=== PATIENT | male | born 1945 | race Caucasian/White ===

== ENCOUNTER → 2016-08-01 | Outpatient (CLI) | payer OTHER ==
[~2016-08-01] MED LIST: ASPI-427 PO; ATOR-54 PO; DOXA8TAB2 PO; LISI-792 PO; POTA20TA16 PO
[2016-08-01 16:18] LABS: BLOOD UREA NITROGEN 16 mg/dl (7-18); BUN/CREATININE RATIO 18.4 (10-20); CREATININE 0.89 mg/dl (0.60-1.40)
[2016-08-01 16:22] LABS: PROSTATE SPECIFIC ANTIGEN 0.457 ng/ml (0.000-4.000)
== END | disposition home or self-care (01) ==
LOC: C.LAB 14:47
PROVIDERS: ATTEND Urology
DX: D49.59 Neoplasm of unspecified behavior of other genitourinary organ (principal); N50.9 Disorder of male genital organs, unspecified

== ENCOUNTER → 2016-08-08 | Outpatient (CLI) | payer OTHER ==
[~2016-08-08] MED LIST changes: +OPTIRAY 320 IV PRN
--- NOTE | 2016-08-08 10:45 | DIAGNOSTIC IMAGING REPORT ---
CT pelvis combination PELVIS COMBO CLINICAL HISTORY: PENILE NEOPLASM; SCROTAL MASS; ENLARGED LYMPH NODES CR=.89 . Mild neoplasm TECHNIQUE: Transaxial acquisition with multi axial reformatted images COMPARISON STUDY: 01/18/2015. 01/14/2013.. 01/26/2014. FINDINGS: As compared to the prior study there appears to be a slight degree of progression of skin thickening of the anterior scrotal wall. Small right hydrocele is similar. There has been no change in the patient's stable inguinal adenopathy. Dimensions as well as number of nodes have remained stable. Bladder is midline. Bowel pattern is nonobstructive. Several small shotty nodes of the iliac chains laterally involving the soft tissue pelvis have remains stable over 2 prior exams. There is no evidence for true lytic or blastic process. Mild degenerative change of the osseous structures are stable. IMPRESSION: 1. Slight nonspecific increase in scrotal wall thickening of the anterior scrotal wall. 2. This is in the absence of any change in the appearance of the scan as compared to prior studies. 3. The small/shotty nodes of the iliac chains bilaterally as well as inguinal regions remain stable with no progressive process. Electronically signed by: Cliff Dash M.D. 08/08/2016 10:44 AM Dictated Date/Time: 08/08/2016 10:37 AM
== END | disposition home or self-care (01) ==
LOC: C.CTS 10:00
PROVIDERS: ATTEND Urology
DX: D49.59 Neoplasm of unspecified behavior of other genitourinary organ (principal); N50.9 Disorder of male genital organs, unspecified; R59.9 Enlarged lymph nodes, unspecified

== ENCOUNTER → 2017-08-06 | Outpatient (CLI) | payer OTHER ==
[~2017-08-06] MED LIST changes: -OPTIRAY 320 IV PRN; +POTA-639 PO; -POTA20TA16 PO
--- NOTE | 2017-08-06 13:12 | DIAGNOSTIC IMAGING REPORT ---
TWO VIEW CHEST CLINICAL HISTORY: Urinary tract infection. Penile neoplasm. FINDINGS: PA and lateral chest radiographs are compared to study dated 05/11/2015. The heart is top normal for projection and there is atherosclerotic calcification of the thoracic aorta. The pulmonary vasculature is noncongested. Chronic interstitial thickening is similar to previous. No airspace consolidation or pleural effusion is identified. There is no pneumothorax. The skeletal structures are osteopenic. Mild degenerative change and hyperkyphosis are noted in the thoracic spine. IMPRESSION: No active disease in the chest. Electronically signed by: Tip Myers M.D. 08/06/2017 1:11 PM Dictated Date/Time: 08/06/2017 1:09 PM
[2017-08-06 13:30] LABS: ALBUMIN 3.3 gm/dl (3.4-5.0); ALT/SGPT 17 U/L (12-78); AST/SGOT 10 U/L (15-37); BLOOD UREA NITROGEN 15 mg/dl (7-18); CALCIUM 8.2 mg/dl (8.5-10.1); CARBON DIOXIDE 25 mmol/L (21-32); GLUCOSE 115 mg/dl (70-99); POTASSIUM 3.8 mmol/L (3.5-5.1); SODIUM 142 mmol/L (136-145)
[2017-08-06 13:35] LABS: ALKALINE PHOSPHATASE 113 U/L (45-117); TOTAL PROTEIN 7.2 gm/dl (6.4-8.2)
== END | disposition home or self-care (01) ==
LOC: C.RAD 12:01
PROVIDERS: ATTEND Urology
DX: R97.20 Elevated prostate specific antigen [PSA] (principal); D49.59 Neoplasm of unspecified behavior of other genitourinary organ; N50.9 Disorder of male genital organs, unspecified; R35.0 Frequency of micturition; N39.0 Urinary tract infection, site not specified

== ENCOUNTER 2019-02-16 20:02 | Inpatient (IN) ==
[2019-02-16] MEDS ORDERED: ACETAMINOPHEN 325 MG TAB PO PRN (22:28)
--- NOTE | 2019-02-16 22:46 | History & Physical Report ---
Date of Service February 16, 2019 Assessment & Plan (1) Acute urinary retention: Mr. 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 ED course in [facility]: Administered 4mg IV morphine. Unable to insert urinary catheter. WCC 7.63, Hgb 13.8, Platelets 235 Na 143, K 4, Cl 111, BUN 17.5, Cr 1.01, Gluc 119, AST 5, ALT 14, Alk phos 112, albumin 3.6 Acute urinary retention -admit to med/surg -related to history of penectomy (done 5 years ago) and subsequent stricture of urethrostomy -Breaks was unable to place a catheter -urology consulted -> able to place a 16 F [place] cath -UA ordered -will hold off abx at this time given afebrile, normal vitals, and normal WCC -continue to monitor -continue home doxazosin Diabetes Mellitus Type 2 -hold home metformin -BSG AC/HS and ISS ordered -continue home aspirin Hypertension -continue home lisinopril Hypercholesterolemia -continue home atorvastatin Code status: FULL DVT prophylaxis: SCDs Disposition: admitted to med/surg (2) Diabetes mellitus type 2 in obese: (3) Hypercholesterolemia: (4) Hypertension: (5) History of penile cancer: History of Present Illness Chief Complaint: Unable to urinate Primary Care Provider: Vincent Poon DO Mr. 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 The patient reports that he has been having a poor stream for the past few days, and has been unable to urinate since 4PM today. He denies any associated fever or chills. He reports abdominal pressure, but denies abdominal pain. With regards to his penile cancer, he reports that he had surgery [address] Johnson and has an inferior opening from which he urinates. He states that he has not had any problems since his surgery. He denies any recent chest pain, or SOB. He does state that he has developed cold symptoms recently, and has a mild sore throat, but is otherwise feeling well. He states he took his medications as prescribed this AM. Allergies Allergy/AdvReac Type Severity Reaction Status Date / Time No Known Allergies Allergy Verified 02/14/15 12:18 Home Medications Home Medications Medication Instructions Recorded Confirmed Type ASPIRIN (ECOTRIN REGULAR STRENGTH) 1 tab PO QAM #0 02/11/15 History ATORVASTATIN (LIPITOR) 20 mg PO QAM #0 tab 02/11/15 History DOXAZOSIN MESYLATE (CARDURA) 1 tab PO QAM #0 tab 02/11/15 History LISINOPRIL (ZESTRIL) 20 mg PO QAM #0 tab 02/11/15 History Potassium Ext Rel (Klor-Con) 2 tab PO QAM #0 tab 02/11/15 History Past Med/Surg History Medical History History of penile cancer Hypertension Type 2 diabetes mellitus Social History Preferred Language: Tamazight Communication Ability: Effective Embryology Teacher Required: No Beliefs That Will Affect Care: None marital status: Current Living Situation: Spouse Feels Safe at Home: Yes Smoking Status: Never smoker Hx Alcohol Use: No Hx Substance Use: No Review of Systems Constitutional: no fever, no chills, no fatigue and no anorexia Ear, Nose, Mouth, Throat: + sore throat Respiratory: no cough, no dyspnea and no wheezing Cardiovascular: no chest pain, no palpitations, no lightheadedness, no syncope, no edema and no calf pain Gastrointestinal: no abdominal pain, no nausea, no vomiting and no change in bowel habits Genitourinary: + difficulty urinating Physical Exam Constitutional: WD/WN, vitals as above + well hydrated and + obese; no acute distress Eyes: PERRL, conjunctivae normal, anicteric sclerae ENMT: external ear and nose normal, oropharynx normal Ears: + hearing impairment Respiratory: normal respiratory effort, lungs clear to auscultation Cardiovascular: RRR, no murmur, no edema Gastrointestinal (Abdomen): Percussion/Palpation: abdomen soft; abdomen nontender, no guarding and abdomen not rigid Musculoskeletal: no cyanosis or clubbing, extremities motor strength 5/5 Skin: no rashes, warm and dry Neurologic: PERRL, EOMI, accommodation nl, no face palsy, no dysarthria Psychiatric: A+Ox3, euthymic affect Results & Data Vital Signs (Past 12 Hours) Vital Signs Temp Pulse Resp BP Pulse Ox 02/16/19 22:04 37.0 C 80 18 142/78 H 92 Code Status & VTE Plan VTE Prophylaxis Plan VTE Prophylaxis will be ordered: Yes Supervising Physician Co-Signing Physician Notes Attending addendum: I have physically seen this patient, have supervised the medical residents activities, and agree with the H&P unless as otherwise noted. Assessment and Plan: Acute urinary retention- Admission to medical surgical floor. Status post penectomy 5 years ago, with acute stricture of urethrostomy. Consult urology Dr. Tucker. Routine laboratories, CBC differential, chemistry profile, PT/PTT/INR, urinalysis, urine culture sensitivity. Begin antibiotics if patient becomes febrile or urinalysis is abnormal. Diabetes mellitus- Hold metformin. Placed on Accu-Cheks before meals and at bedtime with NovoLog coverage per scale. Check hemoglobin A1c. Remainder of orders and notations as noted. Resident Activity Tracking Resident Involvement: Resident Care Provided Care Provided: Adult Hospital Medicine
[2019-02-16] MEDS ORDERED: GLUCOSE 40% GEL 15 GM TUBE PO PRN (23:03)
[2019-02-16] MEDS ORDERED: CARBOHYDRATES FOR HYPOGLYCEMIA PO PRN (23:03)
[2019-02-16] MEDS ORDERED: DEXTROSE 50% 50 ML SYRINGE IV PRN (23:03)
[2019-02-16] MEDS ORDERED: GLUCAGON FOR INJ 1 MG VIAL SQ PRN (23:03)
[2019-02-16] MEDS ORDERED: GLUCOSE 10 TABS/TUBE PO PRN (23:03)
--- NOTE | 2019-02-17 00:19 | Urology Consultation ---
Date of Consultation February 17, 2019 Assessment & Plan (1) History of penile cancer: Patient admitted and closely observed. Urology was consulted while patient was outlying facility. An attempted catheter placement failed at that facility. Was transferred for urgent intervention. Patient has yet to void since approximately 4 PM patient was seen approximately 10:30 PM. Patient is somewhat uncomfortable but has been a small amount of leakage. Patient was able to be eventually dilated. A 5 Serbian open-ended catheter was able be placed with drainage of urine. A wire was then placed and then patient was sequentially dilated up to 16 Serbian with a bois forte tip catheter. Patient is currently draining well. Has dark urine. Had mild amount of bleeding at urethrostomy opening. Severe and significant stenosis/stricture at the opening. Patient did state he waited too long to have this evaluated. Has been having issues for the last few weeks and over the last few days had developed to a very weak drip with occasional voiding. Will maintain catheter for likely 10 to 14 days. With plans to likely intervene with formal dilation and urethroscopy/cystoscopy. We will continue to monitor closely. Monitor labs. We will continue to monitor for infection or other issues. Currently tolerating catheter well. Procedure/Catheter Placement Note. Difficult neil with dilation of urethrostomy. Procedure performed by: Skinny Tucker II Indications: Acute retention with inability to void over approximately 6 hours and discomfort with history of penectomy and stricture of urethrostomy Discussed with patient risks, benefits, and alternatives. These include, but are not limited to, risks of bleeding, infection risks and possible injury to urethra or bladder. Verbal consent was obtained prior to the urgent procedure The identity of patient was confirmed via name and date of , by patient and the correct site and the procedure to be performed were confirmed Anesthesia: 1% Viscous Lidocaine gel Patient was prepped and draped in the usual sterile fashion using: betadine The perineum area was exposed and lubricated. A 5 Fr open ended catheter was able to be placed after manipulation and after flushing began to have a significant drip of urine. Approx 250cc were drained during this. A wire was then placed and the catheter removed. The stenotic opening was then dilated and able to eventually accomiadate a 16 Fr [place] tip Catheter. This was placed over the wire and urine was drained. An additional 500 cc were drained. This was set to bedside drainage bag. Patient was cleaned. Patient Status: Tolerated procedure well with minimal discomfort. Vital signs were stable Complications: No complications Patient Instructions: Patient was instructed to monitor and to notify a provider for bleeding, signs and symptoms of UTI, or fevers. Will continue to observe over night with medicine team. (2) Acute urinary retention: See above (3) Status post urethrostomy: See above (4) Stenosis of urostomy: See above History of Present Illness Attending Physician: Aleks Simpson MD History of Present Illness Patient presenting with acute retention. Has a history of penile cancer status post radical penectomy with perineal urethrostomy. Has had history of voiding issues and stricture of ostomy in past. Patient has over the last few weeks noticed decreasing stream increasing pressure and trouble voiding. Has slowed down to a slow dribble over the last few days. And to the point that today was not voiding at all. Has not had any notable voiding in the last few hours. Likely around 4 PM was last time patient had void. Was transferred from outlying ER. Presents still unable to void with mild amount of leakage from strictured ostomy. Patient having increasing pressure and discomfort. Denies any bleeding or other issues prior to presentation. One attempt at catheter placement was done at the outside ER and a small amount of blood was seen at the opening. They did not fu rther pursue placement. A catheter was able to be placed by myself please see plan for full report. This required sequential dilation with catheters. A 5 Serbian catheter followed by a wire and then dilation up to a 16 Serbian with a bois forte tip catheter. Patient drained approximately 250 cc of urine with 5 Serbian catheter placement and then a another 500 cc of urine after. Discomfort in pelvis and back rating to groin. Pressure in the suprapubic region. Significant urge to void without ability to empty Allergies Allergy/AdvReac Type Severity Reaction Status Date / Time No Known Allergies Allergy Verified 02/14/15 12:18 Home Medications Home Medications Medication Instructions Recorded Confirmed Type ASPIRIN (ECOTRIN REGULAR STRENGTH) 1 tab PO QAM #0 02/11/15 History ATORVASTATIN (LIPITOR) 20 mg PO QAM #0 tab 02/11/15 History DOXAZOSIN MESYLATE (CARDURA) 1 tab PO QAM #0 tab 02/11/15 History LISINOPRIL (ZESTRIL) 20 mg PO QAM #0 tab 02/11/15 History Potassium Ext Rel (Klor-Con) 2 tab PO QAM #0 tab 02/11/15 History Patient History Medical History History of penile cancer Hypertension Type 2 diabetes mellitus Social History Preferred Language: Burundian Communication Ability: Effective Electric Clock Mechanic Required: No Beliefs That Will Affect Care: None Current Living Situation: Spouse Other Information That Helps Us Care for You: No Feels Safe at Home: Yes Safety Concerns: Feels Safe At This Time Smoking Status: Never smoker Hx Alcohol Use: No Hx Substance Use: No Review of Systems Review of Systems: All systems reviewed & are unremarkable except as noted in HPI & below Physical Exam Physical Exam: General: Alert in no acute distress. Moderate discomfort. Need to void. Morbid obesity HEENT: Normocephalic Atraumatic. Inspection normal. Cranial Nerves 2-12 Grossly intact. Normal inspection of face. Normal inspection of neck. Psychologic: Normal affect. Respiratory: Nonlabored. No use of accessory muscles. No tachypnea or dyspnea. Cardiovascular: No tachycardia Skin: Jamul and Dry. No rashes or visible lesions. Extremities/Lymphatics: No edema Abdomen: Suprapubic tenderness and moderate distended. No rebound or guarding. Obese. : Penectomy with out signs of mass or lesion. Severely strictured perineal urethrostomy to pinpoint opening. Dilated up to accommodate a 16 Serbian bois forte tip catheter. Dark strongly smelling urine drained. Total of 750 cc after drainage Results & Data Vital Signs (Past 12 Hours) Vital Signs Temp Pulse Resp BP Pulse Ox 02/16/19 22:04 37.0 C 80 18 142/78 H 92 PG Care Time/CCT Total # of Minutes Spent Total Time Spent with Patient: Total time spent is greater than 50% in coordination of care (as documented) at patient's floor/unit and/or counseling patient:
[2019-02-17 05:58] LABS: BUN Creatinine Ratio 16.6 (10-20); Calcium 8.6 mg/dl (8.5-10.1); Est GFR (African American) 98.3; Est GFR (Non-African American) 84.8
[2019-02-17] MEDS: INSULIN ASPART 100 UNITS/ML 3 ML PEN SC SCH ×2 (08:53→12:22)
[2019-02-17] MEDS ORDERED: POTASSIUM CHLORIDE 20 MEQ TABCR PO SCH (09:00)
[2019-02-17] MEDS ORDERED: DOXAZosin MESYLATE 4 MG TAB PO SCH (09:00)
[2019-02-17] MEDS ORDERED: LISINOPRIL 20 MG TAB PO SCH (09:00)
[2019-02-17] MEDS ORDERED: ASPIRIN 81 MG ECTAB PO SCH (09:00)
[2019-02-17] MEDS ORDERED: ATORVASTATIN 20 MG TAB PO SCH (09:00)
--- NOTE | 2019-02-17 11:44 | Urology Progress Note ---
Date of Service February 17, 2019 Assessment & Plan (1) Stenosis of urostomy: 73yo M with severely strictured perineal urethrostomy to pinpoint opening, Dilated up to accommodate a 16 [place] apache tip catheter at bedside. Pt tolerating catheter well. Okay to discharge home from standpoint with catheter in place. We will arrange for 3-4 week f/u with Dr. Johnson in office, plan to keep catheter until then. Our office to call with appt time. Thank you for allowing us to participate in the acute care of Mr. Dobson. Please reconsult us with additional questions, concerns or changes in patient status. Subjective 73yo M admitted for acute UR rinary obstruction, s/p difficult bedside neil placement with dilation of urethrostomy by Dr. Tucker hx penectomy and stricture of uretrostomy Pt doing well this AM. Sitting up, eating regular diet. Denies any pain or discomfort. Neil draining clear yellow, adequate amounts. Review of Systems Review of Systems: All systems reviewed & are unremarkable except as noted in HPI & below Physical Exam Constitutional: no acute distress and not ill appearing Eyes: no nystagmus ENMT: Ears: no hearing impairment Neck: trachea midline Respiratory: no respiratory distress and no cough Cardiovascular: Vessels: no JVD Chest (Breasts): Chest: normal inspection of chest Gastrointestinal (Abdomen): Inspection/Auscultation: abdomen not distended and no abdominal edema Percussion/Palpation: abdomen soft; abdomen nontender Musculoskeletal: Head/Neck/Chest: normocephalic and head atraumatic Skin: no rashes, warm and dry Neurologic: awake; not confused and not obtunded Psychiatric: Orientation: alert and oriented x 3 Eye Contact: good eye contact Affect: no depressed affect Genitourinary: bladder normal to inspection; no CVA tenderness perineal urethrostomy site with mild bleeding around opening, 16 Barb[place] apache tip catheter intact,draining clear yellow. Lymphatic: no lymphadenopathy and no lymphedema Results & Data Vital Signs (Past 12 Hours) Vital Signs Temp Pulse Resp BP Pulse Ox 02/17/19 11:26 36.4 C L 71 18 130/73 93 02/17/19 09:30 92 02/17/19 07:36 37.1 C 74 18 127/76 95 02/17/19 00:15 37.2 C 77 20 123/76 96 PG Care Time/CCT Total # of Minutes Spent Total Time Spent with Patient: Total time spent is greater than 50% in coordination of care (as documented) at patient's floor/unit and/or counseling patient:
--- NOTE | 2019-02-17 13:32 | Discharge Summary ---
Date of Service February 17, 2019 Admission HPI Per Admitting Provider Mr. 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 The patient reports that he has been having a poor stream for the past few days, and has been unable to urinate since 4PM today. He denies any associated fever or chills. He reports abdominal pressure, but denies abdominal pain. With regards to his penile cancer, he reports that he had surgery [address] Johnson and has an inferior opening from which he urinates. He states that he has not had any problems since his surgery. He denies any recent chest pain, or SOB. He does state that he has developed cold symptoms recently, and has a mild sore throat, but is otherwise feeling well. He states he took his medications as prescribed this AM. Discharge Data Allergies Allergy/AdvReac Type Severity Reaction Status Date / Time No Known Allergies Allergy Verified 02/14/15 12:18 Consultations 02/16/19 22:28 Consult Urology Routine Discharge Plan Discharge Items Patient Disposition: Home - Self-Care Reason For Visit: URINARY OBSTRUCTION Discharge Diagnosis: Severely strictured perineal urethrostomy Acute urinary retention Condition on Discharge: Good Activity: Resume your previous activity Non-emergency contact: Urologist Call non-emergency contact if: you have any medication questions and your symptoms worsen Follow-up/Referrals: Jermaine Johnson MD [Physician] - (2-4 weeks) Vincent Poon DO [Primary Care Provider] - Diet: Carb Consistent or DM2 Addtl Attending Provider Instructions: You were transferred from [facility] to [facility] due to urinary obstruction. You were diagnosed with severely strictured perineal urethrostomy to pinpoint opening. This was treated by progressive dilation and neil catheter insertion on 02/16/[address] Mccall. The neil catheter will remain in until follow up in clinic. Please call the urology office on the number above if you have not heard anything in the next 5-7 days. Pending Studies at Discharge: Yes (urine culture) Stand-Alone Forms: My [facility] [employer], Smoking Cessation Medications and DC Order Prescriptions: Continued ASPIRIN (ECOTRIN REGULAR STRENGTH) 325 MG tablet 1 tab PO QAM Qty: 0 RF: 0 ATORVASTATIN (LIPITOR) 20 MG tablet 20 mg PO QAM Qty: 0 RF: 0 DOXAZOSIN MESYLATE (CARDURA) 8 MG tablet 1 tab PO QAM Qty: 0 RF: 0 LISINOPRIL (ZESTRIL) 20 MG tablet 20 mg PO QAM Qty: 0 RF: 0 Potassium Ext Rel (Klor-Con) 20 MEQ [id number] 2 tab PO QAM Qty: 0 RF: 0 Discharge Orders: Discharge Order (Routine); Ordered 02/17/19 Ordered By: Sylvain Moore Admission Data Admit Date/Time: 02/16/19 21:38 Attending Provider: Sylvain Moore Admit Provider: Amador Suarez Primary Care Provider: Vincent Poon Other Providers: Skinny Tucker
--- NOTE | 2019-02-19 23:52 | Billing Data ---
Coding Level of Care Code 21688 Initial Inpt Care Lvl 3
== END 2019-02-17 14:25 | disposition home or self-care (01) | DRG 700 ==
LOC: SUATTDRO 21:38 → 3N 21:38